=== PATIENT | male | born 1995 | race American Indian/Alaskan Native ===

== ENCOUNTER 2017-01-22 00:23 | Emergency (ER) | payer OTHER ==
[2017-01-22 01:27] LABS: Basophils % (Auto) 1.1 % (0.0-1.8); Eosinophils % (Auto) 9.2 % (0.0-4.3); Hematocrit 42.9 % (35.5-45.6); Hemoglobin 14.3 gm/dl (11.8-15.2); Mean Corpuscular HGB Conc 33 % (32-34); Mean Corpuscular Hemoglobin 32 pg (28-32); Mean Corpuscular Volume 94 fl (84-94); Platelet Count 237 K/mm3 (140-440); Red Blood Count 4.54 M/mm3 (3.65-5.03); Red Cell Distribution Width 13.9 % (13.2-15.2); White Blood Count 7.6 K/mm3 (4.5-11.0)
[2017-01-22 01:42] LABS: Anion Gap 16 mmol/L; Blood Urea Nitrogen 11 mg/dL (9-20); Carbon Dioxide 30 mmol/L (22-30); Chloride 96.5 mmol/L (98-107); Glucose 104 mg/dL (75-100); Magnesium 1.8 mg/dL (1.7-2.3); Potassium 3.6 mmol/L (3.6-5.0); Sodium 139 mmol/L (137-145)
--- NOTE | 2017-01-22 01:42 | Cat Scan Report ---
FINAL REPORT EXAM: CT HEAD/BRAIN WO CON HISTORY: numbness to face COMPARISON: None available. TECHNIQUE: Axial images obtained skull base through vertex. FINDINGS: No acute intracranial hemorrhage, midline shift or pathologic extra axial fluid collection. Ventricles and cisterns are normal in size and configuration for the patient's age. Diaz-white differentiation preserved. Calvarium grossly intact. Mild to moderate mucosal thickening of the paranasal sinuses. Mastoid air cells are clear. Visualized orbits are grossly unremarkable. IMPRESSION: No grossly acute intracranial abnormality.
[2017-01-22] MEDS ORDERED: DELTASONE PO ONE (10:50)
--- NOTE | 2017-01-22 10:50 | Emergency Department Report ---
ED General Adult HPI - General Chief complaint: Weakness Stated complaint: LF FACIAL NON RESPONSE Time Seen by Provider: 01/22/17 10:37 Source: patient Mode of arrival: Ambulatory Limitations: No Limitations - History of Present Illness Initial comments: This is a 21-year-old male. He is previously unknown to me. does not have a primary care doctor. Patient reports no chronic medical conditions. Patient presents to the ER complaining of left-sided cheek numbness, mild facial weakness, inability to close the left eye. Symptoms started yesterday. They're constant. They have no exacerbating or relieving factors. He also reports subjective change in taste on the left side of his tongue. There is no severe headache, neck pain, ear pain. There is no extremity weakness or numbness. No sensation of foreign body in the left eye. No other injuries, no other complaints. -: Gradual Location: face Severity scale (0 -10): 9 Consistency: constant Improves with: none Worsens with: none Associated Symptoms: denies: confusion, chest pain, cough, diaphoresis, fever/ chills, headaches, loss of appetite, malaise, nausea/vomiting, rash, seizure, shortness of breath, syncope, weakness - Related Data Previous Rx's Medication Instructions Recorded Last Taken Type Polyvinyl Alcohol [Artificial 15 ml OS Q1HR #300 drops 01/22/17 Unknown Rx Tears] predniSONE [Deltasone] 60 mg PO QDAY #18 tab 01/22/17 Unknown Rx Allergies Allergy/AdvReac Type Severity Reaction Status Date / Time Fish Containing Products Allergy Swelling Verified 01/20/16 11:57 ED Review of Systems ROS: Stated complaint: LF FACIAL NON RESPONSE Other details as noted in HPI Constitutional: denies: fever Eyes: denies: eye pain, eye discharge, vision change ENT: denies: throat pain, congestion Respiratory: denies: cough Cardiovascular: denies: chest pain Gastrointestinal: denies: abdominal pain Genitourinary: as per HPI Musculoskeletal: denies: back pain, joint swelling, arthralgia Skin: denies: rash, lesions Neurological: denies: headache, abnormal gait, vertigo ED Past Medical Hx - Past Medical History Previous Medical History?: Yes Hx Asthma: Yes - Surgical History Past Surgical History?: No - Social History Smoking Status: Never Smoker Substance Use Type: None - Medications Home Medications: Home Medications Medication Instructions Recorded Confirmed Last Taken Type Polyvinyl Alcohol [Artificial 15 ml OS Q1HR #300 drops 01/22/17 Unknown Rx Tears] predniSONE [Deltasone] 60 mg PO QDAY #18 tab 01/22/17 Unknown Rx ED Physical Exam - General Limitations: No Limitations General appearance: alert, in no apparent distress - Head Head exam: Present: atraumatic, normocephalic - Eye Eye exam: Present: normal appearance, EOMI, other (there is no direct or consensual photophobia. There is no conjunctival injection. Patient is unable to completely close the left eye. There is left-sided forehead weakness. This is asymmetric, as the right forehead has appropriate strength, and patient is able to furrow the eyebrow on the right-hand side.). Absent: nystagmus - ENT ENT exam: Present: normal exam, normal orophraynx, mucous membranes moist, TM's normal bilaterally, normal external ear exam, other (no vesicles are noted. No erythema of tympanic membranes is noted.) - Neck Neck exam: Present: normal inspection. Absent: tenderness, meningismus - Respiratory Respiratory exam: Present: normal lung sounds bilaterally. Absent: respiratory distress, wheezes, rales, rhonchi, stridor, chest wall tenderness - Cardiovascular Cardiovascular Exam: Present: regular rate, normal rhythm, normal heart sounds. Absent: bradycardia, tachycardia, irregular rhythm, systolic murmur, diastolic murmur, rubs, gallop - GI/Abdominal GI/Abdominal exam: Present: soft, normal bowel sounds. Absent: distended, tenderness, guarding, rebound, rigid, pulsatile mass - Rectal Rectal exam: Present: deferred - Extremities Exam Extremities exam: Present: normal inspection, full ROM, normal capillary refill. Absent: tenderness, pedal edema, joint swelling, calf tenderness - Back Exam Back exam: Present: normal inspection, full ROM. Absent: tenderness, CVA tenderness (R), CVA tenderness (L), muscle spasm, paraspinal tenderness, vertebral tenderness - Neurological Exam Neurological exam: Present: alert, oriented X3, normal gait, other (extraocular movements are intact bilaterally. Facial sensation intact to light touch in the bilateral V1, V2, V3 distribution. Patient indicates that sensation subjectively feels intact bilaterally. There is 5/5 strength in the bilateral upper and lower extremities. Sensation is intact to light touch and pinprick in the upper and lower extremities. Normal gait, negative past pointing, negative Romberg, normal [id number]. There is mild left-sided facial weakness , and there is left-sided forehead weakness.). Absent: motor sensory deficit - Psychiatric Psychiatric exam: Present: normal affect, normal mood - Skin Skin exam: Present: warm, dry, intact, normal color. Absent: rash ED Course Vital Signs 01/22/17 01/22/17 01/22/17 00:41 04:52 07:37 Temperature 98.4 F 97.7 F Pulse Rate 108 H 50 L Respiratory 18 18 Rate Blood Pressure 125/79 129/81 O2 Sat by Pulse 100 100 97 Oximetry 01/22/17 01/22/17 01/22/17 07:38 07:40 07:46 Temperature Pulse Rate 47 L 48 L Respiratory 17 12 18 Rate Blood Pressure 126/83 126/83 O2 Sat by Pulse 100 100 100 Oximetry 01/22/17 01/22/17 01/22/17 08:00 08:30 09:00 Temperature Pulse Rate 44 L 53 L 54 L Respiratory 13 16 15 Rate Blood Pressure 124/77 119/68 128/72 O2 Sat by Pulse 99 99 97 Oximetry 01/22/17 01/22/17 01/22/17 09:30 10:00 10:30 Temperature Pulse Rate 49 L 54 L 55 L Respiratory 13 15 16 Rate Blood Pressure 125/76 124/71 125/69 O2 Sat by Pulse 100 100 98 Oximetry - Reevaluation(s) Reevaluation #1: 01/22/17 11:06 Differential diagnosis: Conde's palsy Assessment and plan: 21-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 No indication of vesicles at this time. He is afebrile with reassuring vital signs. No clinical indication of corneal abrasion at this time. A noncontrast CT scan of the head was ordered prior to my evaluation, and it is noted to be negative. Patient is otherwise young and healthy, clinically appears well, and is reliable. He will be started on artificial tears, steroid therapy. He is instructed to follow up with outpatient primary care doctor or neurology specialist. Return precautions are extensively reviewed. ED Medical Decision Making - Lab Data Result diagrams: 01/22/17 01:15 01/22/17 01:15 Vital Signs 01/22/17 01/22/17 01/22/17 00:41 04:52 07:37 Temperature 98.4 F 97.7 F Pulse Rate 108 H 50 L Respiratory 18 18 Rate Blood Pressure 125/79 129/81 O2 Sat by Pulse 100 100 97 Oximetry 01/22/17 01/22/17 01/22/17 07:38 07:40 07:46 Temperature Pulse Rate 47 L 48 L Respiratory 17 12 18 Rate Blood Pressure 126/83 126/83 O2 Sat by Pulse 100 100 100 Oximetry 01/22/17 01/22/17 01/22/17 08:00 08:30 09:00 Temperature Pulse Rate 44 L 53 L 54 L Respiratory 13 16 15 Rate Blood Pressure 124/77 119/68 128/72 O2 Sat by Pulse 99 99 97 Oximetry 01/22/17 01/22/17 01/22/17 09:30 10:00 10:30 Temperature Pulse Rate 49 L 54 L 55 L Respiratory 13 15 16 Rate Blood Pressure 125/76 124/71 125/69 O2 Sat by Pulse 100 100 98 Oximetry Lab Results 01/22/17 01/22/17 Range/Units 01:15 01:15 WBC 7.6 (4.5-11.0) K/mm3 RBC 4.54 (3.65-5.03) M/mm3 Hgb 14.3 (11.8-15.2) gm/dl Hct 42.9 (35.5-45.6) % MCV 94 (84-94) fl MCH 32 (28-32) pg MCHC 33 (32-34) % RDW 13.9 (13.2-15.2) % Plt Count 237 (140-440) K/mm3 Lymph % (Auto) 30.8 (13.4-35.0) % [place] % (Auto) 7.4 H (0.0-7.3) % Eos % (Auto) 9.2 H (0.0-4.3) % Baso % (Auto) 1.1 (0.0-1.8) % Lymph # 2.3 (1.2-5.4) K/mm3 [place] # 0.6 (0.0-0.8) K/mm3 Eos # 0.7 H (0.0-0.4) K/mm3 Baso # 0.1 (0.0-0.1) K/mm3 Seg Neutrophils % 51.5 (40.0-70.0) % Seg Neutrophils # 3.9 (1.8-7.7) K/mm3 Sodium 139 (137-145) mmol/L Potassium 3.6 (3.6-5.0) mmol/L Chloride 96.5 L (98-107) mmol/L Carbon Dioxide 30 (22-30) mmol/L Anion Gap 16 mmol/L BUN 11 (9-20) mg/dL Creatinine 1.1 (0.8-1.5) mg/dL Estimated GFR > 60 ml/min BUN/Creatinine Ratio 10.00 % Glucose 104 H (75-100) mg/dL Calcium 9.0 (8.4-10.2) mg/dL Magnesium 1.8 (1.7-2.3) mg/dL - Radiology Data Radiology results: report reviewed, image reviewed Noncontrast CAT scan of the brain is negative for acute disease. Critical care attestation.: If time is entered above; I have spent that time in minutes in the direct care of this critically ill patient, excluding procedure time. ED Disposition Clinical Impression: Conde's palsy Disposition: DISCHARGED TO HOME OR SELFCARE Is pt being admited?: No Does the pt Need Aspirin: No Condition: Stable Instructions: Conde Palsy (ED) Additional Instructions: Symptoms are most likely consistent with Conde's palsy, which is considered a nonspecific inflammation of the seventh facial nerve. Take the steroids as directed. Use artificial tears in the left eye as directed. Follow up with the primary care doctor or neurology specialist within the next [address] Masoud Pate is a local primary care doctor. Drs. Doss and Dr. Hanson are local neurology specialist. It is possible that he may develop blisters and/or vesicles over the cheek, face , eyelids, ear. Apply warm compresses to these. If blisters started to involve the eyeball itself, seek medical attention immediately. Return to the ER right away with extremity weakness, numbness, chest pain, shortness of breath, inability to speak, inability to breathe. Prescriptions: Polyvinyl Alcohol [Artificial Tears] 15 ml OS Q1HR #300 drops predniSONE [Deltasone] 60 mg PO QDAY #18 tab Referrals: PRIMARY CAREMD [Primary Care Provider] - 3-5 Days ELSI HANSON MD [Staff Physician] - 3-5 Days ELOISA DOSS MD [Staff Physician] - 3-5 Days MASOUD PATE MD [Staff Physician] - 3-5 Days Forms: Work/School Release Form(ED)
[2017-01-22 10:51] VITALS: BP 125/69
== END 2017-01-22 11:27 | disposition home or self-care (01) ==
LOC: ED 00:23
DX: G51.0 Bell's palsy (principal); J45.909 Unspecified asthma, uncomplicated; Z91.013 Allergy to seafood; Z79.899 Other long term (current) drug therapy
CPT/HCPCS: 36415; 70450; 80048; 83735; 85025; 99284; J7512